=== PATIENT | female | born 1980 | race Caucasian/White ===

== ENCOUNTER 2018-12-01 08:42 | Emergency (ER) | payer BC, MEDICAID ==
[~2018-12-01] VITALS: Ht 172.7 cm; Wt 78.9 kg
--- NOTE | 2018-12-01 09:05 | NUR ---
PT AMBULATED TO ROOM 8
[2018-12-01 09:10] VITALS: BP 112/63
--- NOTE | 2018-12-01 09:12 | NUR ---
PATIENT PRESENTS TO ED "APPROX.5 WEEK " C/O UPPER R/L QUADRANT ABDOMINAL PAIN X1 DAY 04/26 DESCRIBED "STABBING/CONSTANT". LMP SEPTEMBER 2018 2 EPISODES OF VOMITING THIS MORNING, DENIES VAGINAL BLEEDING/DIARRHEA/FEVER. SKIN IS PINK/WARM/DRY; AAOX4 WITH EVEN AND STEADY GAIT. PATIENT POSITIONED FOR COMFORT; HOB ELEVATED; BEDRAILS UP X2; BED DOWN.
--- NOTE | 2018-12-01 09:20 | NUR ---
URINE SPECIMEN COLLECTED
[2018-12-01] MEDS ORDERED: ONDANSETRON 4 MG/2 ML VIAL IVP ONE (09:55)
[2018-12-01] MEDS ORDERED: KETOROLAC 30 MG/ML VIAL IM ONE (09:55)
[2018-12-01] MEDS ORDERED: FAMOTIDINE 20 MG/2 ML VIAL IVP ONE (09:55)
--- NOTE | 2018-12-01 10:10 | NUR ---
LAB AT BEDSIDE
[2018-12-01 10:22] LABS: APPEARANCE,URINE CLEAR (CLEAR); BILIRUBIN,URINE NEGATIVE (NEGATIVE); BLOOD, URINE NEGATIVE (NEGATIVE); COLOR,URINE YELLOW (YELLOW); LEUKOCYTE ESTERASE ,URINE NEGATIVE (NEGATIVE); NITRITE, URINE NEGATIVE (NEGATIVE); PH,URINE 5.5 (5.0-9.0); UGLUCOSE NEGATIVE (NEGATIVE)
[2018-12-01 10:22] LABS: BASOPHILS % (AUTO) 0.4 % (0.0-2.0); EOSINOPHILS % (AUTO) 0.4 % (0.0-4.0); HEMATOCRIT 36.8 % (36-48); HEMOGLOBIN 12.3 g/dL (12.0-16.0); LYMPHOCYTES # (AUTO) 1.7 K/uL (2.5-16.5); LYMPHOCYTES % (AUTO) 21.3 % (20.5-51.1); MEAN CORPUSCULAR HEMOGLOBIN 29 pg (27-31); MEAN CORPUSCULAR HGB CONC 33 g/dL (33-37); MEAN CORPUSCULAR VOLUME 86.7 fL (80-94); MONOCYTES # (AUTO) 0.5 K/uL (0.8-1.0); NEUTROPHILS # (AUTO) 5.5 K/uL (1.8-7.7); NEUTROPHILS % (AUTO) 70.9 % (42.2-75.2); PLATELET COUNT (AUTO) 201 K/uL (140-450); RED BLOOD CELL COUNT(AUTO) 4.25 MIL/uL (4.20-5.40); RED CELL DISTRIBUTION WIDTH 14.9 % (11.6-13.7); WHITE BLOOD COUNT (AUTO) 7.8 K/uL (4.8-10.8)
[2018-12-01 10:30] LABS: ANION GAP 8.9 (8-16); CARBON DIOXIDE 27.5 mmol/L (21-32); CREATININE 0.7 mg/dL (0.6-1.3); POTASSIUM 4.4 mmol/L (3.5-5.1)
--- NOTE | 2018-12-01 10:30 | NUR ---
ultrasound at bedside
[2018-12-01 10:36] LABS: ALBUMIN 3.3 g/dL (3.4-5.0); TOTAL BILIRUBIN 0.3 mg/dL (0.0-1.0)
--- NOTE | 2018-12-01 11:15 | NUR ---
PT GIVEN SOME CRACKERS AND WATER
--- NOTE | 2018-12-01 12:15 | NUR ---
PT ASLEEP W/ FRIEND AT BEDSIDE, BED IN LOW POSITION.
[2018-12-01 13:47] VITALS: BP 110/57
--- NOTE | 2018-12-01 13:47 | NUR ---
Patient discharged with v/s stable. Written and verbal after care instructions given and explained. Patient alert, oriented and verbalized understanding of instructions. Ambulatory with steady gait. All questions addressed prior to discharge. ID band removed. Patient advised to follow up with PMD. Rx of tylenol/pepcid/zofran given. Patient educated on indication of medication including possible reaction and side effects. Opportunity to ask questions provided and answered.
== END 2018-12-01 13:47 | disposition home or self-care (01) ==
LOC: MED 08:42
DX: O26.891 Other specified pregnancy related conditions, first trimester (principal); O21.8 Other vomiting complicating pregnancy; J45.909 Unspecified asthma, uncomplicated; Z3A.08 8 weeks gestation of pregnancy; Z88.1 Allergy status to other antibiotic agents
CPT/HCPCS: 36415; 76705; 76815; 80053; 81003; 81025; 85025; 96372; 96374; 96375; 99284; J1885; J2405; J3490; Q0092

== ENCOUNTER 2018-12-06 15:47 | Emergency (ER) | payer BC ==
[~2018-12-06] VITALS: Ht 172.7 cm; Wt 79.9 kg
[2018-12-06 16:00] VITALS: BP 119/66
--- NOTE | 2018-12-06 16:05 | NUR ---
AFTER PROVIDING URINE SAMPLE, PT AMBULATES BACK TO THE LOBBY
--- NOTE | 2018-12-06 16:59 | NUR ---
PT TO ER BED 11
--- NOTE | 2018-12-06 17:00 | NUR ---
ABOUT 8 WKS 38 YR OLD FEMALE WITH C/O LOWER ABDOMINAL PAIN RADIATING TO THE LOWER BACK WITH BROWN DISCHARGE SINCE YESTERDAY; A0, LMP 09/30/18. . DENIES N/V/D; SKIN IS PINK/WARM/DRY; AAOX4 WITH EVEN AND STEADY GAIT; LUNGS CLEAR BL; HR EVEN AND REGULAR; PT DENIES ANY FEVER, CP, SOB, OR COUGH AT THIS TIME; PATIENT STATES PAIN OF 5/10 AT THIS TIME; VSS; PATIENT POSITIONED FOR COMFORT; HOB ELEVATED; BEDRAILS UP X2; BED DOWN. ER MD MADE AWARE OF PT STATUS.
[2018-12-06] MEDS ORDERED: MULTIVITAMIN-12 10 ML, THIAMINE 100 MG, MAGNESIUM SULFATE 50% 2,000 MG, FOLIC ACID 5 MG... IV ONE ×5 (17:55)
[2018-12-06] MEDS ORDERED: ONDANSETRON 4 MG/2 ML VIAL IVP ONE (17:55)
[2018-12-06] MEDS ORDERED: PROMETHAZINE 25 MG/ML VIAL IM ONE (17:55)
[2018-12-06] MEDS ORDERED: LACTATED RINGERS 1,000 ML IV ONE (17:55)
[2018-12-06 18:18] LABS: BASOPHILS % (AUTO) 0.4 % (0.0-2.0); EOSINOPHILS # (AUTO) 0.1 K/uL (0-0.4); HEMATOCRIT 33.4 % (36-48); HEMOGLOBIN 11.3 g/dL (12.0-16.0); LYMPHOCYTES # (AUTO) 1.8 K/uL (2.5-16.5); LYMPHOCYTES % (AUTO) 24.6 % (20.5-51.1); MEAN CORPUSCULAR HEMOGLOBIN 29 pg (27-31); MEAN CORPUSCULAR HGB CONC 34 g/dL (33-37); MEAN CORPUSCULAR VOLUME 86.7 fL (80-94); MONOCYTES # (AUTO) 0.5 K/uL (0.8-1.0); NEUTROPHILS # (AUTO) 4.9 K/uL (1.8-7.7); PLATELET COUNT (AUTO) 195 K/uL (140-450); RED BLOOD CELL COUNT(AUTO) 3.85 MIL/uL (4.20-5.40); RED CELL DISTRIBUTION WIDTH 15.2 % (11.6-13.7); WHITE BLOOD COUNT (AUTO) 7.2 K/uL (4.8-10.8)
[2018-12-06] MEDS ORDERED: FOLIC ACID 5 MG/ML SYR ONE (18:20)
[2018-12-06] MEDS ORDERED: MULTIVITAMIN-12 10 ML VIAL IV ONE (18:20)
[2018-12-06 18:22] LABS: APPEARANCE,URINE CLEAR (CLEAR); BILIRUBIN,URINE NEGATIVE (NEGATIVE); BLOOD, URINE NEGATIVE (NEGATIVE); COLOR,URINE YELLOW (YELLOW); LEUKOCYTE ESTERASE ,URINE NEGATIVE (NEGATIVE); NITRITE, URINE NEGATIVE (NEGATIVE); UGLUCOSE NEGATIVE (NEGATIVE)
[2018-12-06] MEDS ORDERED: MAG SULF 2000 MG/WATER PREMIX 50 ML IV ONE (18:22)
[2018-12-06 18:45] LABS: ALBUMIN 3.2 g/dL (3.4-5.0); AMYLASE 43 U/L (25-115); ANION GAP 12.9 (8-16); ASPARTATE AMINOTRANSFERASE 17 U/L (15-37); CARBON DIOXIDE 26.1 mmol/L (21-32); CHLORIDE 102 mmol/L (98-107); CREATININE 0.8 mg/dL (0.6-1.3); GFR ARICAN-AMERICAN 104 mL/min (>90); GLUCOSE 86 mg/dL (74-106); LIPASE 139 U/L (73-393); MAGNESIUM 1.8 mg/dL (1.8-2.4); SODIUM SERUM 137 mmol/L (136-145); TOTAL BILIRUBIN 0.3 mg/dL (0.0-1.0); UREA NITROGEN, BLOOD 16 mg/dL (7-18)
--- NOTE | 2018-12-06 19:06 | NUR ---
BEDSIDE REPORT RECEIVED FROM CAMILA GARSIA. TRANSFER OF CARE AT THIS TIME
[2018-12-06 19:08] LABS: ACETONE, SERUM NEGATIVE (NEGATIVE)
--- NOTE | 2018-12-06 19:40 | NUR ---
Pt pending discharge upon completion of IV fluids.
[2018-12-06 19:52] VITALS: BP 128/84
--- NOTE | 2018-12-06 19:52 | NUR ---
Patient discharged with v/s stable. Written and verbal after care instructions given and explained. Patient alert, oriented and verbalized understanding of instructions. Ambulatory with steady gait. All questions addressed prior to discharge. ID band removed. Patient advised to follow up with PMD. Rx of Periactin and Phenergen given. Patient educated on indication of medication including possible reaction and side effects. Opportunity to ask questions provided and answered.
== END 2018-12-06 19:52 | disposition home or self-care (01) ==
LOC: MED 15:47
DX: O21.0 Mild hyperemesis gravidarum (principal); O26.891 Other specified pregnancy related conditions, first trimester; R10.30 Lower abdominal pain, unspecified; J45.909 Unspecified asthma, uncomplicated; Z3A.10 10 weeks gestation of pregnancy; Z88.1 Allergy status to other antibiotic agents
CPT/HCPCS: 36415; 80053; 81003; 81025; 82009; 82150; 82977; 83605; 83690; 83735; 85025; 96365; 96372; 96375; 99283; A9153; J2405; J2550; J3411; J3475; J3490; J7030

== ENCOUNTER 2019-05-15 16:20 | Emergency (ER) | payer BC ==
[~2019-05-15] VITALS: Ht 172.7 cm; Wt 89.8 kg
[2019-05-15 16:56] VITALS: BP 131/79
--- NOTE | 2019-05-15 17:04 | NUR ---
PT AMBULATED BACK TO LOBBY WITH STEADY GAIT.
--- NOTE | 2019-05-15 20:12 | NUR ---
CALLED FOR PT IN THE LOBBY/OUTSIDE, NO RESPONSE.
--- NOTE | 2019-05-15 21:12 | NUR ---
PATIENT LEFT WITHOUT BEING SEEN BY DR. SHRESTHA. NO FURTHER CARE PROVIDED FOR PATIENT.
--- NOTE | 2019-05-15 21:17 | NUR ---
CALLED FOR THE SECOND TIME NO RESPONSE
--- NOTE | 2019-05-15 21:22 | NUR ---
CALLED FOR THE THIRD TIME , NO RESPONSE
== END 2019-05-15 20:12 | disposition left against medical advice (07) ==
LOC: MED 16:20
DX: R05 Cough (principal); Z53.21 Procedure and treatment not carried out due to patient leaving prior to being seen by health care provider